=== PATIENT | female | born 1945 | race Caucasian/White ===

== ENCOUNTER 2018-11-13 09:46 | Outpatient (CLI) | payer MEDICARE ==
--- NOTE | 2018-11-13 10:20 | MMO ---
Bilateral MAMMO Bilat Screen DDI+ROSMERY. CLINICAL HISTORY: Patient is 73 years old and is seen for screening. The patient has no family history of breast cancer. The patient has no personal history of cancer. VIEWS: The views performed were: bilateral craniocaudal with tomosynthesis and bilateral mediolateral oblique with tomosynthesis. This study has been interpreted with the assistance of computer-aided detection. MAMMOGRAM FINDINGS: There are scattered fibroglandular densities. There are no suspicious masses, suspicious calcifications, or new areas of architectural distortion. IMPRESSION: THERE IS NO MAMMOGRAPHIC EVIDENCE OF MALIGNANCY. A ROUTINE FOLLOW-UP MAMMOGRAM IN 1 YEAR IS RECOMMENDED. THE RESULTS OF THIS EXAM WERE SENT TO THE PATIENT. ACR BI-RADS Category 1 - Negative MAMMOGRAPHY NOTE: 1. A negative mammogram report should not delay a biopsy if a dominant of clinically suspicious mass is present. 2. Approximately 10% to 15% of breast cancers are not detected by mammography. 3. Adenosis and dense breasts may obscure an underlying neoplasm. Reported by: WILLI OSWALD MD Electonically Signed: [id number]
== END 2018-11-13 09:47 | disposition home or self-care (01) ==
LOC: BICMAMMO 09:46
PROVIDERS: ATTEND Family Medicine
DX: Z12.31 Encounter for screening mammogram for malignant neoplasm of breast (principal)
CPT/HCPCS: 77063; 77067

== ENCOUNTER 2019-03-13 09:45 | Emergency (ER) | payer MEDICARE ==
--- NOTE | 2019-03-13 10:47 | RAD ---
EXAM: Chest 2 views: HISTORY: Chest pain COMPARISON: None. FINDINGS: There is a normal-sized cardiomediastinal silhouette. There is a left hilar area of opacity and volum e loss is seen in the left thorax. Degenerative changes are seen in the spine. IMPRESSION: Left hilar mass. A CT the chest with contrast is recommended for further evaluation.
[2019-03-13 10:48] LABS: #Basophils 0.2 thou/uL (0.0-0.2); #Eosinphils 0.2 thou/uL (0.0-0.7); #Lymphocytes 3.8 thou/uL (1.20-3.40); #Monocytes 0.7 thou/uL (0.11-0.59); #Neutrophils 4.6 thou/uL (1.40-6.50); %Basophils 1.6 % (0.0-1.0); %Eosinophils 1.7 % (0.0-10.0); %Lymphocytes 40.3 % (21.0-51.0); %Monocytes 7.2 % (0.0-10.0); %Neutrophils 49.2 % (42.0-75.0); Mean Corpuscular HGB CONC 34.4 g/dL (32.0-36.0); Mean Corpuscular Hemoglobin 33.6 pg (27.0-31.0); Mean Corpuscular Volume 97.7 fL (78.0-98.0); Mean Platelet Volume 7.1 fL (7.4-10.4); Platelet Count 250 thou/uL (130-400); RBC Distribution Width 11.6 % (11.5-14.5); Red Blood Cell (RBC) Count 3.86 mill/uL (4.20-5.40); White Blood Cell (WBC) Count 9.4 thou/uL (4.8-10.8)
[2019-03-13 11:12] LABS: ALT (SGPT) 12 U/L (8-55); AST (SGOT) 34 U/L (5-34); Alkaline Phosphatase 112 U/L (40-110); Anion Gap 13 mmol/L (10-20); BUN (Urea Nitrogen) 20 mg/dL (9.8-20.1); Bilirubin, Total 0.4 mg/dL (0.2-1.2); Calc. Creatinine Clearance 0 mL/min (70-130); Carbon Dioxide 27 mmol/L (23-31); Chloride 101 mmol/L (98-107); Estimated GFR-MDRD 53; Globulin 2.9 g/dL (2.4-3.5); Glucose 99 mg/dL (83-110); Lipase 15 U/L (8-78); Potassium 4.3 mmol/L (3.5-5.1); Protein, Total 6.9 g/dL (6.0-8.3); Sodium 137 mmol/L (136-145)
== END 2019-03-13 12:05 | disposition home or self-care (01) ==
LOC: ERS 09:45
DX: J98.59 Other diseases of mediastinum, not elsewhere classified (principal); I10 Essential (primary) hypertension; F41.9 Anxiety disorder, unspecified; F17.210 Nicotine dependence, cigarettes, uncomplicated; Z79.899 Other long term (current) drug therapy
CPT/HCPCS: 71046; 80053; 83690; 84484; 85025; 93005

== ENCOUNTER 2019-03-26 09:30 | Outpatient (CLI) | payer MEDICARE ==
--- NOTE | 2019-03-26 13:57 | PET ---
EXAM: PET/CT HISTORY: Malignant neoplasm of overlapping sites of left bronchus and lung. Exam requested for initial staging of lung cancer TECHNIQUE: PET scanning with CT attenuation correction was performed from the base of the brain to the proximal thighs following the intravenous administration of 10.5 millicuries [id number]. COMPARISON: None. CORRELATION: CT scan of the chest dated the 03/12/2019 from [facility] FINDINGS: Innumerable hypermetabolic lesions are seen throughout the skeleton consistent with widespread osseou s metastatic disease. There is hypermetabolic activity in the left upper lobe mass with an SUV of 14.6. No galindo hypermetabolism is seen in the mediastinum and left hilar lymph nodes with SUVs of 11.8 in t he right paratracheal, 15.8 in the prevascular, 11.1 in the subcarinal, 12 in the AP window and 12.3 in the left hilar lymph nodes. Hypermetabolic left supraclavicular lymph node has an SUV of 8.9. Hypermetabolic lymph nodes in the upper abdomen are seen with SUV of 12 in the periportal and 13.8 in the portacaval lymph nodes. There are multiple hypermetabolic liver lesions with a maximum SUV of 10.4 in the right lobe and 11 i n the left lobe. No hypermetabolic adrenal, pancreatic or splenic lesions are seen. . There is physiologic activity in the GI and tracts and the visualized portions of the brain. The CT scan used for attenuation correction demonstrates no evidence of right pleural effusion or asc ites. There is a moderate-sized left pleural effusion. There is colonic diverticulosis. IMPRESSION: Left upper lobe malignancy with extensive metastatic disease as discussed above.
== END 2019-03-26 09:31 | disposition home or self-care (01) ==
LOC: PET 09:30
PROVIDERS: ATTEND Internal Medicine Hematology & Oncology
DX: C34.12 Malignant neoplasm of upper lobe, left bronchus or lung (principal); C79.51 Secondary malignant neoplasm of bone
CPT/HCPCS: 78815; A9552

== ENCOUNTER 2019-04-01 06:50 | Outpatient (CLI) | payer MEDICARE ==
--- NOTE | 2019-04-01 07:58 | CT ---
CT of thehead with and without contrast: 04/01/2019 COMPARISON:None available HISTORY:Small cell lung cancer, staging examination, history of headaches and dizziness TECHNIQUE: Serial axial CT imaging at5 mm from thevertex through skull base with and without contrast . Findings:Noncontrast enhanced imaging demonstrates scattered white matter hypodensity, evidence of sm all vessel disease. The imaged paranasal sinuses/mastoid air cells are well-aerated. No displaced calvarial fracture. Postcontrast imaging demonstrates no abnormal enhancement within the brain parenchyma. Impression:Small vessel disease. No acute findings.
[2019-04-01] MEDS ORDERED: Iopamidol 370 76% 100 ML VIAL ONE (16:00)
== END 2019-04-01 06:51 | disposition home or self-care (01) ==
LOC: CT 06:50
PROVIDERS: ATTEND Internal Medicine Hematology & Oncology
DX: C34.82 Malignant neoplasm of overlapping sites of left bronchus and lung (principal); I67.89 Other cerebrovascular disease
CPT/HCPCS: 70470; Q9967